=== PATIENT | female | born 1965 | race Caucasian/White ===

== ENCOUNTER 2017-10-10 10:32 | Day surgery (SDC) | payer OTHER | END 2017-10-10 14:06 | disposition home or self-care (01) | LOC: GIL 10:32 | DX: Z12.11 Encounter for screening for malignant neoplasm of colon (principal); D12.5 Benign neoplasm of sigmoid colon; K51.90 Ulcerative colitis, unspecified, without complications; K64.8 Other hemorrhoids | CPT/HCPCS: 45380; 84703; 88305 ==